=== PATIENT | female | born 1945 | race Caucasian/White ===

== ENCOUNTER 2017-12-31 16:56 | Emergency (ER) | payer MEDICARE, OTHER ==
[2017-12-31 17:07] VITALS: BP 158/50
[2017-12-31] MEDS ORDERED: HYDROCODONE/ACETAMINOPHEN 5-325 MG TABLET PO ONE (17:46)
[2017-12-31] MEDS ORDERED: IBUPROFEN 600 MG TABLET PO ONE (17:46)
--- NOTE | 2017-12-31 18:10 | RADIOLOGY REPORT (SQ) ---
EXAM DESCRIPTION: FOOT LEFT COMPLETE COMPLETED DATE/TIME: 12/31/2017 5:58 pm REASON FOR STUDY: pain s/p injury COMPARISON: None. NUMBER OF VIEWS: Three views. TECHNIQUE: AP, lateral and oblique radiographic images acquired of the left foot. LIMITATIONS: None. FINDINGS: MINERALIZATION: Normal. BONES: Cannot exclude avulsion of a small fragment of bone from the anterior aspect of the navicular as suggested on the lateral view. JOINTS: No effusions. SOFT TISSUES: No soft tissue swelling. No foreign body. OTHER: No other significant finding. IMPRESSION: Cannot exclude avulsion injury involving the anterior aspect of the navicular. TECHNICAL DOCUMENTATION: JOB ID: [id number] [employer]- All Rights Reserved Reading location - IP/workstation name: [email or web address]
--- NOTE | 2017-12-31 18:11 | RADIOLOGY REPORT (SQ) ---
EXAM DESCRIPTION: ANKLE LEFT COMPLETE COMPLETED DATE/TIME: 12/31/2017 5:58 pm REASON FOR STUDY: pain s/p injury COMPARISON: None. NUMBER OF VIEWS: Three views. TECHNIQUE: AP, lateral, and oblique radiographic images acquired of the left ankle. LIMITATIONS: None. FINDINGS: MINERALIZATION: Normal. BONES: No acute osseous abnormality in the ankle. Possible avulsion involving the anterior aspect of the navicular. JOINTS: No effusions. SOFT TISSUES: Soft tissue swelling more prominent laterally. OTHER: No other significant finding. IMPRESSION: Soft tissue swelling. No fracture of the ankle. Possible avulsion involving anterior a spect of the navicular. TECHNICAL DOCUMENTATION: JOB ID: [id number] [employer]- All Rights Reserved Reading location - IP/workstation name: [email or web address]
[2017-12-31] MEDS ORDERED: HYDROCODONE/ACETAMINOPHEN 5-325 MG (6 TAB/ER DISP) PO PRN (18:58)
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
--- NOTE | 2018-01-01 10:23 | EKG REPORT ---
SEVERITY:- ABNORMAL ECG - SINUS RHYTHM VENTRICULAR TRIGEMINY PROBABLE INFERIOR INFARCT, AGE INDETERMINATE CONSIDER ANTEROSEPTAL INFARCT : Confirmed by: Patricia Mansfield MD 01-Jan-2018 10:22:35
== END 2017-12-31 20:33 | disposition home or self-care (01) ==
LOC: ER 16:56
DX: S92.255A Nondisplaced fracture of navicular [scaphoid] of left foot, initial encounter for closed fracture (principal); M25.572 Pain in left ankle and joints of left foot; M79.672 Pain in left foot; W01.0XXA Fall on same level from slipping, tripping and stumbling without subsequent striking against object, initial encounter; I10 Essential (primary) hypertension
CPT/HCPCS: 93005; 99284; 73610; 73630; 93010; A9270 ×3